=== PATIENT | female | born 1960 | race American Indian/Alaskan Native ===

== ENCOUNTER 2020-02-11 06:50 | Day surgery (SDC) | payer BC, OTHER ==
[~2020-02-11] VITALS: Ht 162.6 cm; Wt 74.8 kg
--- NOTE | ~2020-02-11 | EKG ---
[facility] [address] [facility] [place], [place] [address] Draft EK completed, results pending confirmation PATIENT NAME: BIANKAMYRTLE Electrocardiogram DATE OF : 58 PHYSICIAN: PRELIMINARY REPORT #: [id number] REPORT IS CONFIDENTIAL AND NOT TO BE RELEASED WITHOUT AUTHORIZATION
[~2020-02-11 06:50] MED LIST: METFORMIN HCL500 MG PO
[2020-02-11] MEDS ORDERED: IBUPROFEN600 MG PO (10:15)
[2020-02-11] MEDS ORDERED: OXYCODON-ACETA1 EAC2 PO (10:16)
[2020-02-11] MEDS ORDERED: TYLENOL EXTRA500 MG PO (10:16)
--- NOTE | 2020-02-11 13:09 | EKG ---
[facility] [address] [facility] [place], [place] [address] Signed Normal sinus rhythm Normal ECG When compared with ECG of 11-FEB-2020 07:17, (Unconfirmed) No significant change was found Confirmed by MARYAM LEÓN DO ([id number]) on 02/11/2020 1:09:05 PM Electronically Signed By: MARYAM LEÓN DO 02/11/20 1309 PATIENT NAME: MYRTLE CARLTON Electrocardiogram DATE OF : 58 PHYSICIAN: MARYAM LEÓN DO REPORT #: [id number] REPORT IS CONFIDENTIAL AND NOT TO BE RELEASED WITHOUT AUTHORIZATION
--- NOTE | 2020-02-12 09:14 | OR ---
[facility] [address] [place], [place] [address] Signed DATE OF OPERATION: 02/11/2020 SURGEON: Lauren Leavitt MD PREOPERATIVE DIAGNOSIS: Right axillary soft tissue mass with recurrent inflammation. POSTOPERATIVE DIAGNOSIS: Right axillary soft tissue mass with recurrent inflammation. PROCEDURE: Excision of right axillary soft tissue mass including skin, subcutaneous tissue, and deep axillary soft tissue. ANESTHESIA: General LMA, Lauren Durant CRNA. INDICATION: This 59-year-old [place] woman is a patient of Prerna Kunz PA-C, [facility]. She is noted to have a soft tissue mass of right axillary area, which initially had some pustular formations in suggestion. This may represent axillary hidradenitis. She was treated primarily with moist heat to the area which settled her symptoms down. She was seen once again in followup on 02/04/2020 with worsening of the swelling and a pimple-like formation over the area, but the mass extended deep in the axilla. She is admitted at this time to undergo excision of the lesion whether it represents hidradenitis suppurativa, axillary adenitis or epidermal inclusion cyst with episodic inflammation. The risk of bleeding, infection, recurrence, pain problems, and so forth were reviewed with her. She understands and wished to proceed. FINDINGS: The mass had receded somewhat in the past few days with moist heat. Elliptical excision included skin, subcutaneous tissue and the deep soft tissue mass that measured about 2 cm in size at least. Complete excision was accomplished. DESCRIPTION OF PROCEDURE: The patient was brought to the operating room, given a general anesthetic by LMA technique. Preoperative antibiotic Ancef was given. Sequential compression device stockings used and heparin subcutaneously administered. The right axilla was examined and the palpable abnormality was smaller than previously, but still quite present somewhat amorphous and diffuse. The right axilla was prepared with a chlorhexidine Electronically Signed By: LAUREN LEAVITT MD 02/12/20 0914 PATIENT NAME: MYRTLE CARLTON OPERATIVE REPORT DATE OF : 58 REPORT #: [id number] PHYSICIAN: LAUREN LEAVITT MD PCP: PRERNA KUNZ REPORT IS CONFIDENTIAL AND NOT TO BE RELEASED WITHOUT AUTHORIZATION [facility] [address] [place] [id number] Signed solution and draped sterilely. A marker was used to define the limits of the excision. An elliptical incision made along the line of skin tension. Dissection was carried through the subcutaneous tissue with electrocautery and deep excision undertaken excising the mass in total with surrounding skin and subcutaneous tissue. The lesion was passed for pathology. Hemostasis was assured with electrocautery. The wound was closed in layers with interrupted 2-0 Vicryl. The skin was not closed specifically. The Steri- Strips were applied as was a silver sponge dressing. She was ultimately extubated without problem and taken to recovery room in good condition per COVID-19 protocol. MD ANRALDO Bond/DORIS /[id number] cc: SERVANDO Howard Copies: TARA VAZQUEZ ELIZABETH ~ Electronically Signed By: LAUREN LEAVITT MD 02/12/20 0914 PATIENT NAME: MYRTLE CARLTON OPERATIVE REPORT DATE OF : 58 REPORT #: [id number] PHYSICIAN: LAUREN LEAVITT MD PCP: PRERNA KUNZ REPORT IS CONFIDENTIAL AND NOT TO BE RELEASED WITHOUT AUTHORIZATION
--- NOTE | 2020-02-12 13:27 | PATH ---
[facility] [address] [place], [place] [address] Signed SPECIMEN(S): A RIGHT AXILLA MASS SPECIMEN SOURCE: A. RIGHT AXILLA MASS CLINICAL HISTORY: Axillary lymphadenopathy, right. FINAL PATHOLOGIC DIAGNOSIS: Soft tissue mass, right axilla, excision: - Compatible with ruptured epidermal inclusion cyst. - No atypia or malignancy identified. DDF:emb:C2NR MICROSCOPIC EXAMINATION: Histologic sections of all submitted blocks are examined by light microscopy. These findings, together with the gross examination, support the pathologic diagnosis. GROSS DESCRIPTION: The specimen, labeled "SS," and designated on the requisition "soft tissue mass, right axilla," is received in formalin and consists of one unoriented irregular shaped piece of skin tissue that measures 4.0 x 1.4 cm with attached up to 2.1 cm yellow-munoz, soft subcutaneous tissue. Specimen is inked. Sectioning through the specimen reveals a cyst like defect that measures 0.6 cm dimension. The cyst like defect is filled with a clear fluid. The remaining of the tissue is yellow-munoz, lobulated fibroadipose tissue. [employer] sections are submitted in cassettes (A1-A3). JS (under the direct supervision of a pathologist) The Gross Description was prepared using a voice recognition system. The report was reviewed for accuracy; however, sound-alike word errors, addition and/or deletions may occur. If there is any question about this report, please contact Client Services. PERFORMING LABORATORY: The technical component was performed by [facility], [address] [place] [id number] (Sustainable Design Consultant: Kenyatta Lowe MD; CLIA# [id number]). [facility], [address] [address] (CLIA# [id number]). PATIENT NAME: MYRTLE CARLTON PATHOLOGY DATE OF : 58 REPORT #: [id number] PHYSICIAN: YANELY PATHOLOGY PCP: LITO KUNZ REPORT IS CONFIDENTIAL AND NOT TO BE RELEASED WITHOUT AUTHORIZATION [address] [place] [address] Signed Diagnostician: Santos Perez DO Pathologist Electronically Signed 02/12/2020 Copies: ~ PATIENT NAME: MYRTLE CARLTON PATHOLOGY DATE OF : 58 REPORT #: [id number] PHYSICIAN: YANELY PATHOLOGY PCP: LITO KUNZ REPORT IS CONFIDENTIAL AND NOT TO BE RELEASED WITHOUT AUTHORIZATION
== END 2020-02-11 12:07 | disposition home or self-care (01) ==
LOC: DS 06:50
PROVIDERS: Surgery
PROC: 0JB40ZZ Excision of Right Neck Subcutaneous Tissue and Fascia, Open Approach (ICD-10-PCS; principal; 2020-02-11 10:00)
DX: R59.0 Localized enlarged lymph nodes (principal); E11.9 Type 2 diabetes mellitus without complications; F17.210 Nicotine dependence, cigarettes, uncomplicated; Z79.84 Long term (current) use of oral hypoglycemic drugs; Z79.899 Other long term (current) drug therapy; Z90.49 Acquired absence of other specified parts of digestive tract
CPT/HCPCS: 93005; 93010; J0690; J1100; J1644; J1885; J2250; J2405; J2704; J2765; J3010; J7121